=== PATIENT | female | born 1995 | race Caucasian/White ===

== ENCOUNTER → 2018-04-06 11:32 | Outpatient (CLI) | payer BC, SELFPAY ==
[2018-04-06 16:07] LABS: Hematocrit 40.1 % (37-47); Hemoglobin 12.7 g/dl (12.0-15.0); Mean Corp Hgb Conc 31.7 g/gl (32-36); Mean Corpuscular Hgb 25.1 pg (27.0-32.0); Mean Corpuscular Volume 79.4 fL (81-99); Mean Platelet Vol. 9.2 fl (6.2-12.0); Platelet Count 340 K/mm3 (150-450); RBC Distribution Width CV 14.7 % (11.6-14.6); Red Blood Count 5.05 M/mm3 (4.2-5.4); White Blood Count 6.3 K/mm3 (4.4-11.0)
[2018-04-06 16:08] LABS: Scan Indicated on CBC? Y/N NO
[2018-04-06 16:13] LABS: hCG Titer Quant., Serum < 1 mIU/mL (<9 non-preg)
[2018-04-06 16:19] LABS: Estradiol 71.1 pg/mL; Free T3 3.3 pg/mL (2.18-3.98); T4 Free Direct 1.02 ng/dL (0.76-1.46); Thyroid Stim Hormone (TSH) 0.88 uIU/mL (0.358-3.74)
[2018-04-06 16:20] LABS: Progesterone Level 0.17 ng/mL (See Comment)
[2018-04-06 16:26] LABS: Hemoglobin A1c 5.6 % (4.2-6.3)
[2018-04-11 11:41] LABS: HPV Reflexed? NOT INDICATED
== END ==
PROVIDERS: Visit Provider Obstetrics & Gynecology
DX: N92.6 Irregular menstruation, unspecified (principal); Z12.4 Encounter for screening for malignant neoplasm of cervix
CPT/HCPCS: 36415; 82670; 83036; 84144; 84403; 84439; 84443; 84481; 84702; 85027; 88175; G0145